=== PATIENT | male | born 1925 | race Caucasian/White ===

== ENCOUNTER → 2016-09-07 | Outpatient (CLI) | payer OTHER, MEDICARE ==
[2016-09-07 08:55] LABS: HEMOGLOBIN 15.2 g/dL (14.0-18.0); MEAN CORPUSCULAR VOLUME 92.7 FL (80-90)
[2016-09-07 09:01] LABS: BASOPHILS # (AUTO) 0.06 10*3/UL; BASOPHILS % (AUTO) 0.9 % (0-1); EOSINOPHILS # (AUTO) 0.28 10*3/UL; EOSINOPHILS % (AUTO) 4.3 % (0-8); HEMATOCRIT 45.4 % (42.0-52.0); LYMPHOCYTES # (AUTO) 1.51 10*3/uL; MEAN CORPUSCULAR HGB CONC 33.5 g/dL (33-37); MEAN PLATELET VOLUME 10.3 FL (7.4-12.2); MONOCYTES # (AUTO) 0.67 10*3/UL (0.3-0.8); MONOCYTES % (AUTO) 10.2 % (5-15); NEUTROPHILS # (AUTO) 4.01 10*3/UL; NEUTROPHILS % (AUTO) 61.2 % (50-80)
[2016-09-07 09:21] LABS: BUN/CREATININE RATIO 22.72 (6-20); CALCIUM 9.3 mg/dL (8.7-10.7); CHOL/HDL RATIO 3.07 RATIO (0-4.0); SERUM ALBUMIN 4.4 g/dL (3.5-4.8)
[2016-09-07 10:03] LABS: WBC MORPHOLOGY COMMENT NORMAL MORPHOLOGY (NORM)
[2016-09-07 10:04] LABS: PLATELET MORPHOLOGY COMMENT SEE COMMENTS (NORM); RBC MORPHOLOGY COMMENT NORMAL MORPHOLOGY (NORM)
== END ==
LOC: LAB 08:38
PROVIDERS: ATTEND Internal Medicine
DX: I10 Essential (primary) hypertension (principal); E03.9 Hypothyroidism, unspecified
CPT/HCPCS: 36415; 80053; 80061; 84443; 85025

== ENCOUNTER → 2016-09-14 | Outpatient (CLI) | payer OTHER, MEDICARE ==
[2016-09-14 17:47] LABS: BASOPHILS # (AUTO) 0.03 10*3/UL; BASOPHILS % (AUTO) 0.4 % (0-1); EOSINOPHILS # (AUTO) 0.31 10*3/UL; EOSINOPHILS % (AUTO) 4.5 % (0-8); HEMATOCRIT 45.4 % (42.0-52.0); HEMOGLOBIN 14.9 g/dL (14.0-18.0); LYMPHOCYTES # (AUTO) 1.73 10*3/uL; MEAN CORPUSCULAR HEMOGLOBIN 30.5 PG (27-31); MEAN CORPUSCULAR HGB CONC 32.8 g/dL (33-37); MEAN CORPUSCULAR VOLUME 92.8 FL (80-90); MEAN PLATELET VOLUME 10.1 FL (7.4-12.2); MONOCYTES # (AUTO) 0.87 10*3/UL (0.3-0.8); MONOCYTES % (AUTO) 12.5 % (5-15); NEUTROPHILS % (AUTO) 57.6 % (50-80); PLATELET MORPHOLOGY COMMENT NORMAL MORPHOLOGY (NORM); RBC MORPHOLOGY COMMENT NORMAL MORPHOLOGY (NORM); RED BLOOD COUNT 4.89 10^6/uL (4.70-6.10); WBC MORPHOLOGY COMMENT NORMAL MORPHOLOGY (NORM)
== END ==
LOC: MOB LAB 16:03
PROVIDERS: ATTEND Internal Medicine
DX: D69.6 Thrombocytopenia, unspecified (principal)
CPT/HCPCS: 36415; 85025